=== PATIENT | female | born 1975 | race Caucasian/White ===

== ENCOUNTER 2018-11-30 22:10 | Emergency (ER) | payer SELFPAY ==
[~2018-11-30] VITALS: Ht 160 cm; Wt 59.0 kg
[2018-11-30 22:21] VITALS: BP 141/81; PULSE 84; RESP 18; Ht 160 cm; Wt 59.0 kg
[2018-12-01] MEDS ORDERED: CYCL10TA7 PO (00:20)
[2018-12-01] MEDS ORDERED: IBUP800T48 PO (00:20)
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
[2018-12-02] MEDS ORDERED: HYDR-4011 PO (14:52)
== END 2018-12-01 00:45 | disposition home or self-care (01) ==
LOC: FTE 22:10
DX: S16.1XXA Strain of muscle, fascia and tendon at neck level, initial encounter (principal); S29.9XXA Unspecified injury of thorax, initial encounter; V49.40XA Driver injured in collision with unspecified motor vehicles in traffic accident, initial encounter
CPT/HCPCS: 99283

== ENCOUNTER 2018-12-02 14:04 | Emergency (ER) | payer SELFPAY ==
[~2018-12-02] VITALS: Ht 162.6 cm; Wt 58.7 kg
[~2018-12-02 14:04] MED LIST: CYCL10TA7 PO; IBUP800T48 PO
[2018-12-02 14:08] VITALS: BP 134/80; PULSE 77; RESP 18; Ht 162.6 cm; Wt 58.7 kg
[2018-12-02] MEDS ORDERED: HYDR-4011 PO (14:52)
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
== END 2018-12-02 15:00 | disposition home or self-care (01) ==
LOC: FTE 14:04
DX: M54.2 Cervicalgia (principal)
CPT/HCPCS: 72040